=== PATIENT | female | born 1945 | race Caucasian/White ===

== ENCOUNTER 2018-08-13 08:06 | Day surgery (SDC) | payer MEDICARE, SELFPAY ==
--- NOTE | 2018-08-13 | AXNB_PTH ---
PATIENT: LEANNA CONNOLLY LOC: [facility] – [place] U#:[id number] AGE/SX: 73/F ROOM: RE08/13/[address]: Dr. Rajani St MD : 1945 BED: DIS: 08/13/2018 SPEC #: [id number] RECD: 08/13/18 10:59 STATUS: BERNA REAmy #: [id number] PANTERA: 08/13/18 00:[address]: Rajani St DEPT: SURGICAL PATHOLOGY RECD BY: Kimberlee Rosenberg ENTERED: 08/13/18 11:46 SP TYPE: AX NODE BX OTHR DR: Dr. Dallas Fletcher DO Tissues: A - Axillary lymph node, NOS B - Left breast, NOS Procedures: Frozen Section (charge) Frozen Section Add'l ([facility]) Surgery Specimen Level V Frozen (no charge) HEADER OPERATION: Left breast lumpectomy, sentinel node, NL PRE-OP DIAGNOSIS: Newly diagnosed left breast cancer TISSUE SUBMITTED: A - Left breast axillary tissue for sentinel nodes sent for frozen at 1053, B - Left breast biopsy, one long suture valentin lateral border, two long sutures haider medial border, one short suture valentin superior border FROZEN SECTION DIAGNOSIS A. Left sentinel nodes, biopsy: Three out of three lymph nodes are negative for metastatic carcinoma. B. Left breast lumpectomy: Invasive ductal carcinoma. SJ:sulema 08/13/18 MICROSCOPIC DIAGNOSIS A. Left axillary sentinel lymph nodes, biopsy: Three out of three lymph nodes negative for metastatic carcinoma. B. Left breast, lumpectomy: Invasive ductal carcinoma. See cancer checklist below. AM:sulema 08/15/18 COMMENT INVASIVE BREAST CANCER SUMMARY: Specimen: Partial breast Procedure: Excision with wire guidance Specimen integrity: Single intact specimen. Specimen size: 7 x 4 x 2.5 cm Specimen laterality: Left breast Invasive tumor: Tumor size: 5 x 5 x 5 mm Tumor focality: Single focus of invasive carcinoma Macroscopic and Microscopic extent of tumor: Skin: Not present Nipple: Not present Skeletal muscle: No present Histologic type of invasive carcinoma: Invasive ductal carcinoma Histologic Grade (Orly grade): Glandular/tubular differentiation score: 2 Nuclear pleomorphism score: 2 Mitotic count score: 1 Overall grade: Grade 1 (4 of 5) Margins: Uninvolved by invasive carcinoma. Distance from closest (inferior margin) - 5 mm Lymph-Vascular invasion: Not identified Dermal lymph-vascular invasion: Not identified Lobular carcinoma in situ (LCIS): Not identified Lymph nodes: Number of sentinel lymph nodes examined - 3 Total number of lymph nodes examined (sentinel and nonsentinel) - 3 No evidence of macrometastases, micrometastases or isolated tumor cells. See specimen A. Microcalcifications: Present in both carcinoma and non-neoplastic tissue, focal. Treatment effect: Unknown Additional pathologic findings: Usual intraductal hyperplasia with focal atypical intraductal hyperplasia. Fibrocystic change. Changes of previous biopsy. Ancillary studies: Block B6 ([id number]) ER: >95%, strong AR: >95%, strong Her2 ritika:0-1+ (IHC):Negative PATHOLOGIC STAGE: pT1a N0(sn) Mx The above summary is in compliance with [employer] (CAP) Cancer Protocols Checklist and [place] Joint Committee on Cancer (AJCC), Staging Manual, 8th Ed. Case has been reviewed in consultation with Dr. Ospina who concurs with the above diagnosis. IDC:SJ MICROSCOPIC DESCRIPTION Slides are reviewed. GROSS DESCRIPTION A - Received fresh for frozen section diagnosis labeled with the patient's name is a specimen designated left sentinel node. The specimen consists of three fragments of mancia-yellow fibroadipose tissue that in aggregate measure 3 x 3 x 1 cm. Three nodules consistent with lymph nodes are identified. The entire specimen is submitted in four cassettes as follows: 1 - frozen section, smallest lymph node, 2 - frozen section, one bisected lymph node, 3 - frozen section, one bisected lymph node, 4 - rest of the specimen. Both sections will be submitted after additional fixation. B - Received fresh for intraoperative consultation and followed later by frozen section diagnosis labeled with the patient's name is a specimen designated left breast lumpectomy. The specimen consists of a fragment of mancia-yellow fibroadipose tissue with needle localization measuring 7 x 4 x 2.5 cm. The specimen is oriented as follows: one long suture - lateral border, two long sutures - medial border, one short suture - superior border. The specimen is inked as follows: anterior - yellow, posterior - black, superior - blue, inferior - green, medial - red and lateral - orange. Serial sections reveal a mancia, indurated nodule measuring 0.5 cm in greatest dimension and it is close to inferior margin. This information is conveyed to the surgeon intraoperatively. The entire nodule with surrounding tissue is submitted for frozen section diagnosis. Sections of the rest of the specimen reveal mancia-yellow adipose cut surfaces mixed with scant fibrous areas. It Infrastructure Consultant sections are submitted in 12 cassettes as follows: 1-3 - frozen section, suspicious nodule, 4 & 5 - perpendicular margins, 8-12 - enrollment representative sections adjacent to and away from the nodule. Both sections will be submitted after additional fixation. / FAVIO:sulema 08/13/18 TC:0 CPT: 90029 x2, 27386 x2, 39326 x4
--- NOTE | 2018-08-13 | IMM_PTH ---
PATIENT: LEANNA CONNOLLY [place] [facility] [place][id number] AGE/SX: 73/F ROOM: RE08/13/[address]: Dr. Rajani St MD : 1945 BED: DIS: 08/13/2018 SPEC #: [id number] RECD: 08/18/18 10:09 STATUS: BERNA REQ #: [id number] PANTERA: 08/13/18 00:[address]: Rajani St DEPT: IMMUNOHISTOCHEMISTRY RECD BY: Kimberlee Rosenberg ENTERED: 08/18/18 10:12 SP TYPE: IMMUNO OTHR DR: Dr. Dallas Fletcher DO Tissues: A - Axillary lymph node, NOS B - Left breast, NOS Procedures: CALPONIN-1 (add) CK5-6 (add) CK7 (add) CK8 (add) E-CAD (add) HER2 LETTY (add) KI-67 (add) P53 (add) CT (add) Pankeratin (add) P40 (add) ER (initial) CK7 (initial) PHYSICIAN & [place] [id number] SPECIMEN INFORMATION: Tissue Source: A - Left breast axillary nodes, B - Left breast lumpectomy Clinical Info: Left breast cancer Specimen Number: [id number] A1, A2, A3, B6 CPT code: 27514 x2, 62567 x11, 16526 x3 METHODOLOGY: Deparaffinized sections of prefer/formalin-fixed tissue or PAP/DQ stained slides are incubated with monoclonal/polyclonal antibodies/oligonucleotide probes. Localization is made via biotin free immunoperoxidase method. Appropriate controls are performed and reacted as expected. Results on target cell population are indicated in the following table: RESULTS: ANTIBODY / CLONE RESULT Block A1 CK7 (OV-TL12/30) negative AE1-3 (AE1/AE3/PCK26) negative Block A2 CK7 (OV-TL12/30) negative AE1-3 (AE1/AE3/PCK26) negative Block A3 CK7 (OV-TL12/30) negative AE1-3 (AE1/AE3/PCK26) negative Block B6 P53 (DO-7) negative Ki-67 (30-9) positive, low CK8 (71cepjM08) positive CK5-6 (D5 & 1684) negative Calponin-1 (RF263S) negative P40 (BC28) negative E-Cad (ECH-6) positive MORPHOMETRIC ANALYSIS ER (clone 6F11) >95% CT (clone 16/1E2) >95% Her-2Neu (clone CB11) 0-1+ The prognostic test for HER2 is performed on formalin-fixed paraffin embedded tissue. A 3+ (positive) staining pattern is defined as intense, homogeneous, complete, circumferential membranous staining in >10% of contiguous tumor cells. A similar weak (2+) staining pattern is interpreted as equivocal. BENITA follow-up testing is recommended for all equivocal cases. Positivity/negativity for ER/CT is reported if > or < 1% of the tumor cells are immuno- reactive, respectively. The ASCO/CAP criteria is used for scoring. Reference: Journal of Clinical Oncology, 2013; 31:1003-0035 & 2010; 16:6520-2727. Duration of fixation: __ Hrs; Sample Adequate: Yes. These assays have not been validated on decalcified tissues. Results should be interpreted with caution given the likelihood of false negativity on decalcified specimens. These tests were developed and their performance characteristics determined by [facility]. They may not have been cleared or approved by the U.S. Food and Drug Administration. The FDA has determined that such clearance or approval is not necessary. INTERPRETATION: A. Left sentinel lymph nodes, biopsy: Three out of three lymph nodes negative for carcinoma. B. Left breast lumpectomy: Invasive ductal carcinoma, grade 1/3. Positive for estrogen receptors (favorable prognostic indicator). Positive for progesterone receptors (favorable prognostic indicator). Negative for overexpression of [id number]. AM:sulema 08/18/18
--- NOTE | 2018-08-13 06:55 | BI_ITS ---
SURGICAL BREAST SPECIMEN RADIOGRAPH CLINICAL: Document presence of wire in biopsy specimen. FINDINGS: Specimen shows presence of spiculated lesion in the center of the specimen with a wire detected. Pathology is pending and an addendum to the biopsy report will be performed after the final pathologic diagnosis is rendered. Electronically Signed: Sedrick Holm, at 13:44 EST Tel , Service support , BI/Breast Biopsy Specimen
--- NOTE | 2018-08-13 07:43 | HP.PCM_ITS ---
History and Physical Date of Admission: 08/13/18 Estella Aguilar 1945 ? ? REFERRING PHYSICIAN: Kelsea Pritchett (Andrea* ? CHIEF COMPLAINT: Newly diagnosed left breast cancer ? HPI: The patient is a 73 year old female presents with abnormal ultrasound of left breast. Underwent left US guided breast biopsy on 07/31/18. No breast cancer known in family. The ultrasound lesion is located at 2:00, 1 cm from the nipple, near the scar tissue area of a previous left breast biopsy. Denies palpable breast masses. Denies nipple discharge. Denies chronic breast pain. No breast or ovarian cancer known in family. ? Pathology - Left breast, needle core biopsy (A) - Invasive ductal carcinoma, nuclear grade 2. ER/NJ > 95%, Her2 negative ?? ? PAST MEDICAL HISTORY ? Carotid atherosclerosis, bilateral 11/2017 ? 20-39% per [place] carotids b/l ? Dyslipidemia ? ? Dysphagia ? ? Esophageal reflux ? ? Esophagitis, unspecified ? ? GERD (gastroesophageal reflux disease) ? ? HTN (hypertension) ? ? IFG (impaired fasting glucose) ? ? Left leg pain 05/2016 ? chronic, slightly abnormal left PVR/CHLOE ? Migraines ? ? Osteopenia ? ? PHN (postherpetic neuralgia) ? ? Unspecified gastritis and gastroduodenitis ? ? ? PAST SURGICAL HISTORY ? APPENDECTOMY ? ? ? BREAST BIOPSY - left ? ? ? COLONOSCOP W/ OR W/O BRSH SPEC ? 01/06/15 ? EGD - BALLOON DILATION <30MM ? 06/24/07 ? EGD W/O BRS SPECIMEN W/BX ? 09/23/09 ? EGD W/O OR W/BRUSH/WASH ? 03/06/07 ? EGD W/O OR W/BRUSH/WASH ? 11/27/2011 ? EGD W/O OR W/BRUSH/WASH ? 09/04/13 ? ESOPHAGEAL MANOMETRY ? 06/24/07 Dr. Almanza [facility] ? EXCISION BAINS NEUROMA EACH Bilateral ? ? HEART CATHETERIZATION ? ? ? PAST SURGICAL HISTORY OF ? 05/12/2018 uterine prolapse surgery ? TUBAL LIGATION ? MEDICATIONS valACYclovir (VALTREX) 500 mg tablet Take 2 tablets by mouth twice daily. As needed for cold sore outbreaks aspirin 81 mg chewable tablet Take 81 mg by mouth once daily. TURMERIC ROOT EXTRACT ORAL Take 1 tablet by mouth once daily. metoprolol succinate ER (TOPROL XL) 50 mg 24 hr tablet Take 1 tablet by mouth once daily. cycloSPORINE (RESTASIS MULTIDOSE) 0.05 % drop Use in eyes. MAGNESIUM CARBONATE ORAL Take 400 mg by mouth once daily. Riboflavin (VITAMIN B-2) 25 mg tab Take 100 mg by mouth once daily. 3 pills (300) nitroglycerin sublingual 0.4 mg SL tablet Dissolve 1 tablet under the tongue as needed. FOR CHEST PAIN. IF NO RELIEF CALL 911 docusate sodium (COLACE) 100 mg capsule Take 1 capsule by mouth twice daily. (Patient not taking: Reported on 07/24/2018 polyethylene glycol 3350 (MIRALAX) 17 gram/dose powder Take 17 g by mouth once daily. (Patient not taking: Reported on 07/24/2018 ibuprofen (MOTRIN) 600 mg tablet Take 1 tablet by mouth every 6 hours as needed for Pain. Take with food. (Patient not taking: Reported on 07/24/2018 calcium carbonate 600 mg-cholecalciferol 200 units (CALCIUM 600 WITH VITAMIN D3) 600 mg(1,500mg) -200 unit tab Take 2 tablets by mouth once daily. BIOTIN ORAL Take 1,000 mcg by mouth as directed. Every other day. cyanocobalamin (VITAMIN B-12) 1,000 mcg tab Take 1,000 mcg by mouth once daily. L.ACID/L.CASEI/B.BIF/B.PADMA/FOS (PROBIOTIC BLEND ORAL) Take 1 tablet by mouth once daily. ? ? ALLERGIES: Penicillins; Sulfites ? PERSONAL HISTORY: Social History Marital status: Spouse name: Years of education: Number of children: 2 Occupational History Occupation Employer Comment [employer] Social History Main Topics Smoking status: Former Smoker Packs/day: 0.00 Years: 0.00 Smokeless tobacco: Never Used Alcohol use: Yes 3.0 oz/week Glasses of Wine (5oz): 2 per week Comment: rarely Drug use: No ? FAMILY HISTORY ? Cancer Mother ?? Uterine ? COPD Mother ? ? other (dementia) Father ? ? Stroke Paternal Grandmother ? ? Heart Paternal Grandfather ? ? None Other ? ? Stroke Brother ? ? Heart Brother ? ? Heart Brother ? ? ? REVIEW OF SYSTEMS: General: The patient denies fatigue, denies weight loss, denies weight gain, denies feeling hot, and denies feelings of cold. Eyes: The patient denies glaucoma, notes eye injury/surgery, does not wear glasses or contacts. Ear/Nose/Throat: The patient notes allergies, denies hayfever, denies ear infections, and notes bloody noses. Cardiovascular: The patient denies chest pain, denies heart disease, notes high blood pressure,denies cardiac stent, denies prior heart attack, denies irregular heart beat, denies high cholesterol, denies poor circulation, denies heart failure, other cardiac issues, denies claudication, denies cold feet, denies peripheral arterial stent. Respiratory: The patient denies tuberculosis, denies pneumonia, denies frequent cough, denies pulmonary embolism, denies shortness of breath, and denies coughing up blood. Gastrointestinal: The patient denies difficulty swallowing, notes acid reflux, denies ulcers, denies vomiting, denies jaundice/hepatitis, denies gallbladder problems, denies black or tarry stools, denies hemorrhoids, denies bleeding from rectum, denies diverticulitis, denies constipation, denies diarrhea, denies loss of stool control, and denies hernias. Kidney/Bladder: The patient denies kidney stones, notes urine infections, and denies bloody urine. Skin: The patient denies a history of skin cancer, denies bleeding/changing moles, and denies a history of skin rash. Neurologic: The patient denies a history of epilepsy/convulsions, notes headaches, denies head/spinal injuries, and denies stroke/TIA. Psychiatric: The patient denies psychiatric medications, denies depression, and denies voices, denies substance abuse. Endocrine: The patient denies thyroid disorders, denies diabetes, and denies hormonal problems. Hematologic: The patient denies a history of bruising, denies bleeding, and denies anemia, denies blood clots. Infections: The patient notes a history of measles and mumps, denies rheumatic fever, and denies sexually transmitted diseases. Musculoskeletal: The patient denies back pain/injury, denies back problems, denies sciatica, denies knee/foot trouble, denies arthritis, or denies gout. Obstetrical: menarche onset at age [age], , first age 18, breast feeding none, BCP initially at age 19 for about 6 months, menopause age 53, HRT for < 6 m ? PHYSICAL EXAMINATION: General: The patient is 73 year old female, well nourished, well hydrated in no acute distress. The patient is oriented to time, place, and person. VITALS: Blood pressure 164/70, pulse 66, weight 55.2 kg (121 lb 12.8 oz). Body mass index is 22.28 kg/m?. Head ? Normocephalic. EOM intact with sclera clear and no icterus noted. Mouth with mucus membranes moist. Neck - supple with no jugular venous distention noted. Trachea is midline. No carotid bruits noted. No thyroid enlargement or thyroid nodules detected. No masses noted. Chest/breast ? no asymmetry of breasts noted, no suspicious skin lesions noted - healed incisional scar slightly transverse extending from 2:00 left breast, no nipple discharge and both nipples everted, no breast masses noted, nodular, dense breast tissue palpated bilaterally, no suspicious lesions palpated Lungs ? clear to auscultation. Normal breath sounds. No rales/rhonchi/wheezing noted. No labored breathing noted, such as retractions. . Heart ? normal S1 and S2 auscultated. No rubs/clicks/murmurs noted. Regular rate. Abdomen ? soft and benign. Normal bowel soundss. No abdominal bruits noted. Extremities ? no calf tenderness noted. No pitting edema noted. Skin ? normal skin integrity. Lymph ? no cervical adenopathy detected, no supraclavicular adenopathy detected, no axillary adenopathy detected Neurological ? gait normal, no focal deficits noted Psych ? calm and appropriate RADIOLOGIC STUDIES: As Noted ? ? IMPRESSION: newly diagnosed left breast cancer ? PLAN: I have discussed the above with the patient and her son who is present with her. I have given the patient options for initial surgical treatment. Options are the following: lumpectomy followed by radiation therapy vs. mastectomy vs. mastectomy followed by immediate reconstruction. I have described the procedures to the patient. I have described the advantages and disadvantages of the options, but I have told the patient that among the options, the survival rate for breast cancer is the same. I have told the patient that with all of the surgeries that a sentinel lymph node biopsy is required. I have described the procedure of sentinel lymph node biopsy to the patient. I have told the patient the risks of surgery, including but not limited to: infection, bleeding, scar tissue, seroma and persistent seroma, lymph leak, injury to any blood vessels, injury to any nerves (particularly the long thoracic, the thoracodorsal, and the second intercostal brachial and the resultant sequelae), lymphedema, cosmetic deformity, dysthesias, wound infections, further surgery (especially if margins are not clear), complications of anesthesia, etc. ? the patient understands. The radiologist is not be available for radioisotope injection for lymph node localization until after the holidays and I have explained this to the patient. The lymph nodes will be localized with blue dye localization. I have explained both types of localization would be ideal, but then surgery cannot be scheduled until after the new year. Patient understands the limitations of only blue dye localization and wants to proceed with surgery without radioisotope injection localization - because she wants to have surgery as soon as possible. I have answered all the patient?s questions at this point to her satisfaction and she has no further questions She is to undergo right breast lumpectomy via wire localization and right sentinel axillary lymph node biopsy via blue dye localization at [facility].
[2018-08-13 08:23] VITALS: BP 179/80; PULSE 77; RESP 14; TEMP 36.6; O2SAT 99; BMI 21.4
--- NOTE | 2018-08-13 09:33 | PCM.IMDPSTOP ---
Immediate Post-Op Note Date of Procedure: 08/13/18 Primary Surgeon/Physician: Rajani St MD online media director: Eleanor Terrazas Pre-Operative Diagnosis: left breast cancer Post-Operative Diagnosis: same Surgery/Procedure Performed:: left breast lumpectomy via wire localization, left axillary sentinel lymph node biopsy via blue dye technique Description of Surgical Findings:: three lymph nodes found negative, specimen mammogram doesn't show clip but xray obtained in the OR did not show any clips in the area Estimated Blood Loss: 30 ml Specimen's removed: left breast lumpectomy tissue, left axillary sentinel lymph becky tissue Type of Anesthesia:: General ASA Class: ASA2 Mod Systematic Disease - Admit VTE Documentation VTE Present on Admission: Yes VTE Mechan Device Prophylaxis: SCD's
[2018-08-13] MEDS: Isosulfan Blue 1% 5 ML Vial (10:20)
--- NOTE | 2018-08-13 12:19 | OP.PCM_ITS ---
Report of Operation Date of Procedure: 08/13/18 Pre-Operative Diagnosis: left breast cancer Post-Operative Diagnosis: same Surgery/Procedure Performed:: left breast lumpectomy via wire localization, left axillary sentinel lymph node biopsy via blue dye technique Description of Surgical Findings:: three lymph nodes found negative, specimen mammogram doesn't show clip but xray obtained in the OR did not show any clips in the area carrot grader inspector: Eleanor Terrazas Type of Anesthesia:: General Anesthesiologist: Nicolas Salazar Specimen's removed: left breast lumpectomy tissue, left axillary sentinel lymph becky tissue Drains: none Estimated Blood Loss (mL): 30 ml Fluids Replaced: 1000 ml RL Description of Procedure: After informed consent was given, the patient was brought into the Breast Stereotactic Radiology suite and placed in the prone position on the [place] stereotactic table. The patient?s left breast was placed in the opening at the head of the table. A analytical manager compression mammogram was then obtained in the lateral view. The marker clip that was previously placed was identified. Stereo pictures of the lesion were then taken for XYZ coordinates. The Kopans needle was then positioned where it would be entering into the patient?s breast. The skin at this site was then cleansed with a surgical skin preparation. The skin and subcutaneous tissues at this site were then infiltrated with 1% xylocaine. The Kopans needle was then positioned into the patient?s breast at the proper coordinates of depth. A analytical manager film was obtained which revealed the wire in proper position. The patient was then placed in the supine position and the wire was taped into place. A unilateral mammogram in the CC and MLO view were then taken for use in the OR. The patient tolerated this portion of the procedure well and was brought to the AC awaiting surgery in the OR. The patient was then brought to the Operating Room and placed on the operating table in the supine position. A wire had already been placed in the stereotactic biopsy room in the radiology department as described above. The left breast periareolar area was infiltrated with lymphozurin dye - 50:50 diluted - total of 3.5 cc used. Gentle massage was then done for a few minutes. The patient's left chest and neck area was then prepped with a sterile surgical skin preparation and appropriate sterile surgical drapes were placed. A skin incision was made in the inferior portion of the hair bearing area of the left axilla. It was carried through to the subcutaneous tissues using electrocautery. Any hemorrhage was controlled with electrocautery. A Weitlaner retractor was used for increased operative exposure. The blue lymphatic vessels were then followed by blunt dissection until blue colored lymph nodes were identified. These were from the surrounding tissue by blunt dissection and the vascular pedicles ligated with ligaclips. The lymph nodes were then forwarded to pathology for frozen section. Pathology revealed that three lymph nodes were negative for metastatic disease. Careful hemostasis was achieved with electrocautery. Truman was applied to the axillary cavity. The deep fascia was approximated with interrupted 2-0 vicryl suture. The skin edges were reapproximated with 3-0 vicryl suture in a horizontal mattress fashion and then further closed with running 4-0 monocryl in a subcuticular fashion. Dermibond then placed to reinforce the skin closure and proper sterile dressings were applied The left breast lumpectomy was then done. There was a previous incisional scar. The skin and subcutaneous tissues were infiltrated with local anesthetic. An incision was made to take an ellipse of skin tissue with the previous scar incorporated with a 15 blade scalpel incorporating the previous biopsy site. It was sharply carried down to the subcutaneous tissues. Hemostasis was controlled with electrocautery. The wire was then followed down and the surrounding breast tissue was then from the breast tissue using electrocautery. Most of this tissue (that contained the biopsy cavity) was centrally located. A good margin of breast tissue surrounding the biopsy cavity was incorporated in the quadrantectomy. Once the breast tissue with the biopsy cavity was entirely freed then it was marked with suture at its borders. Hemostasis was with electrocautery. The specimen was handed off to radiology. A specimen mammogram revealed that a mass was in the specimen, however, no marker clip was identified. The specimen was sent to pathology for analysis. The margins were adequate. Because no marker clip was identified in the specimen, I asked the pathologist for a frozen section of the the breast mass and also obtained a modified xray to identify for the marker clip. The pathologist did note a cancer in the specimen. The xray did not identify a marker clip. Hemostasis of the lumpectomy cavity was carefully achieved with electrocautery. The deep tissue were approximated with heavy vicryl suture. A horizontal mattress suture into the dermis was placed with 3-0 vicryl suture. The skin incisions were then closed with running subcuticular 4-0 monocryl suture. Dermibond was then placed to reinforce the skin closure and proper sterile dressings were applied. - Complications none noted - Admit VTE Documentation VTE Present on Admission: Yes VTE Mechan Device Prophylaxis: SCD's
[2018-08-13] MEDS: Bupiv/Epi 0.5% Mpf 30 ML Vial (12:26)
--- NOTE | 2018-08-13 12:30 | RAD_ITS ---
STUDY: X-RAY CHEST REASON FOR EXAM: Female, 73 years old. TECHNIQUE: COMPARISON: None. FINDINGS: There is opaque. U shaped foreign body inferior lateral aspect of the breast probably overlying the skin could be the concerned foreign which could also represent a lead are EKG monitoring. No evidence of metallic or opaque clip identified within the image provided. Electronically Signed: Sedrick Holm, at 14:05 EST Tel , Service support , RAD/Chest 1 View (Portable)
[2018-08-13 12:42] VITALS: BP 118/71; BP 179/80; PULSE 99; RESP 14; TEMP 36.5; O2SAT 95
[2018-08-13 12:45] VITALS: BP 125/67; BP 179/80; PULSE 102; RESP 16; O2SAT 92
[2018-08-13 13:00] VITALS: BP 145/76; BP 179/80; PULSE 98; RESP 16; O2SAT 96
--- NOTE | 2018-08-13 13:07 | PCM.DC.BS ---
Discharge Diet: No Restrictions Discharge Activity: Return to Normal Activity, May not drive while taking narcotic pain medications. Lifting Restrictions: no lifting with left arm greater than 5 pounds until further notice Call your doctor if your incision/area has: Continuous Slow Oozing, Foul Smelling Discharge Call your doctor if you observe: Fever of 101 or Higher Additional Dressing/Incision Instructions:: Leave dressings in place. May get wet in shower. Do not soak - no tub baths/swimming Additional Instructions: Wear bra during day for support May apply ice to the area for comfort Avoid any trauma to the left breast Allergies/Adverse Reactions: Allergies Penicillins Allergy (Verified 08/13/18 08:20) Swelling shellfish derived Allergy (Verified 08/13/18 08:20) Unknown Sulfa (Sulfonamide Antibiotics) Allergy (Verified 08/13/18 08:20) Unknown Medications to take at Discharge Metoprolol(XL)Succ [Toprol Xl (Beta Gin)] 50 mg PO DAILY 07/19/13 Magnesium Oxide [Magnesium] 400 mg PO DAILY 06/08/16 Riboflavin (Vitamin B2) [Vitamin B2] 300 mg PO DAILY 06/08/16 Aspirin [Aspirin, Baby] 81 mg PO DAILY@0800 08/08/18 Calcium Carbonate/Vitamin D3 [Calcium 500 mg-Vit D3 600 Unit] 1 each PO TID 08/08/18 Turmeric Root Extract [Turmeric] 500 mg PO DAILY 08/08/18 Hydrocodone Bitart/Apap 5-325 [Lafferty 5MG-325MG] 1 tab PO Q8H PRN PRN 5 Days #10 tab 08/13/18 The following prescriptions were given: Hydrocodone Bitart/Apap 5-325 [Lafferty 5MG-325MG] 1 tab PO Q8H PRN PRN 5 Days #10 tab PRN Reason: Pain Primary Care Physician: Dallas Fletcher DO [Primary Care Provider] - Please Follow Up With: Rajani St MD - call When: to be seen in a week, please call for date and time, thank you
[2018-08-13 13:13] VITALS: BP 150/79; BP 179/80; PULSE 102; RESP 16; TEMP 36.7; O2SAT 93
[2018-08-13 14:06] VITALS: BP 155/78; BP 179/80; PULSE 87; RESP 16; TEMP 36.6; O2SAT 96
== END 2018-08-13 14:32 | disposition home or self-care (01) ==
LOC: SDC 08:06 → AC 08:10
PROVIDERS: Family Provider Student in an Organized Health Care Education/Training Program; PCP Student in an Organized Health Care Education/Training Program; Referring Provider Surgery; Visit Provider Surgery
PROC: (CPT 19301; principal; 2018-08-13 09:15)
DX: C50.912 Malignant neoplasm of unspecified site of left female breast (principal); Z87.891 Personal history of nicotine dependence; E78.5 Hyperlipidemia, unspecified; K21.9 Gastro-esophageal reflux disease without esophagitis; I10 Essential (primary) hypertension
CPT/HCPCS: 01610; 19301; 38525; 38900; 19281; 71045; 76098; 88305; 88307; 88331; 88332; 88341; 88342; J7120; J2405; J3490; Q9968

== ENCOUNTER 2020-04-06 08:23 | Emergency (ER) | payer MEDICARE, SELFPAY ==
[2020-04-06 08:24] VITALS: BP 170/89; PULSE 74; RESP 17; TEMP 36.6; O2SAT 100; BMI 21.7
--- NOTE | 2020-04-06 08:55 | EKG12_ITS ---
Test Reason : ABD. PAIN Blood Pressure : / mmHG Vent. Rate : 067 BPM Atrial Rate : 067 BPM P-R Int : 148 ms QRS Dur : 086 ms QT Int : 400 ms P-R-T Axes : 060 008 056 degrees QTc Int : 422 ms Normal sinus rhythm with sinus arrhythmia Septal infarct , age undetermined Abnormal ECG Confirmed by PITO SMITH ([id number]), online editor RAMA BAEZA ([id number]) on 04/11/2020 9:38:18 AM Referred By: JAMIL Confirmed By:PITO SMITH
--- NOTE | 2020-04-06 08:55 | RAD_ITS ---
STUDY: X-RAY CHEST REASON FOR EXAM: Female, 74 years old. Pain underneath breast bone. TECHNIQUE: Single AP portable view of the chest. COMPARISON: None. FINDINGS: The lungs are clear and expanded. There is no demonstrated pleural abnormality. Normal size heart. Normal mediastinum and lashawn. Normal visualized pulmonary arteries. Normal visualized aortic arch and descending thoracic aorta. There are diffuse degenerative changes of the visualized thoracic spine. Normal visualized ribs, clavicles, and shoulders. There is no demonstrated abnormality of the visualized soft tissue structures of the upper abdomen. RAD/Chest 1 View (Portable) IMPRESSION: Degenerative changes, as described above. No demonstrated acute cardiopulmonary process. Electronically Signed: Bharathi Guerra, at 9:42 EDT Tel , Service support ,
[2020-04-06] MEDS: 0.9% Normal Saline 1,000 ML 15 ML IV (09:05)
[2020-04-06 09:11] LABS: Absolute Lymphocyte Count 2.34 X10^3/uL (0.83-4.51); Absolute Neutrophil Count 3.1 X10^3/uL (2.0-7.7); Basophil# 0.04 X10^3/uL; Basophil% 0.6 % (0-1); Eosinophil# 0.18 X10^3/uL; Eosinophils% 2.9 % (0-5); Hematocrit 42.5 % (37-47); Hemoglobin 13.7 g/dL (12.0-15.0); Lymphocyte # 2.34 X10^3/ul (4.0); Lymphocyte % 37.8 % (19-41); Mean Corp Hgb Conc 32.2 g/dL (32-36); Mean Corpuscular Hgb 29.8 pg (27.0-32.0); Mean Corpuscular Volume 92.4 fL (81-99); Mean Platelet Vol. 9.5 fl (6.2-12.0); Monocyte# 0.45 X10^3/uL; Monocyte% 7.3 % (0-10); NRBC Flagged by Analyzer 0 % (0-5); Neutrophil # 3.14 X10^3/uL (2.7-7.7); Neutrophil % 50.8 % (47-70); Platelet Count 300 K/mm3 (150-450); RBC Distribution Width SD 47.2 fl (35.1-43.9); White Blood Count 6.2 K/mm3 (4.4-11.0)
[2020-04-06 09:25] LABS: AST(SGOT) 20 U/L (15-37); Alanine Aminotransfer ALT/SGPT 27 U/L (13-56); Alkaline Phosphatase 51 U/L (45-117); Anion Gap 6 (5-15); BUN 14 mg/dL (7-18); Chloride 106 mmol/L (98-107); Creatinine, Serum 0.78 mg/dL (0.55-1.02); EST Glomerular Filtration Rate 77 mL/min (>60); Est Glom Filt Rate - Afr Amer 93 mL/min (>60); Estimated Creatinine Clearance 37.85 ml/min; Glucose 115 mg/dL (74-106); Potassium 3.8 mmol/L (3.5-5.1); Sodium Level 138 mmol/L (136-145)
[2020-04-06 09:51] LABS: D-Dimer Quantitative (DVT/PE) 0.65 FEU/ug/m (0.27-0.49)
--- NOTE | 2020-04-06 09:51 | ED.RN ---
NOTIFIED OF D-DIMER OF 0.65. AWAITING ORDERS.
--- NOTE | 2020-04-06 10:19 | CT_ITS ---
STUDY: CTA CHEST REASON FOR EXAM: Female, 74 years old. CP, RUQ PAIN X 3 DAYS, ELEV D-DIMER, HX BREAST CANCER RADIATION DOSAGE (If Supplied By Facility): CTDIvol = ( 5.35 ) mGy, DLP = ( 150.65 ) mGycm TECHNIQUE: The examination was performed with the intravenous administration of IV 75mL Isovue-370. Post-processing of the angiographic images was performed, with multiplanar reformation and 3D reconstruction. Individualized dose optimization techniques were used for this CT. COMPARISON: None. FINDINGS: Normal enhancement of the main pulmonary artery and right and left pulmonary arteries. Normal enhancement of the bilateral peripheral pulmonary arteries. There is no demonstrated pulmonary embolism. Normal thoracic aorta and visualized great vessels. There is no demonstrated aortic dissection. Normal heart and pericardium. Normal mediastinum. Normal hilar regions. Normal visualized trachea and bronchi. The lungs are well expanded. Normal pulmonary parenchyma. Normal pleura. Normal chest wall structures. Normal osseous structures. Normal visualized upper abdomen. CT/CTA Chest W/WO Contrast IMPRESSION: Normal CTA chest examination, without a demonstrated pulmonary embolism or arterial dissection. Electronically Signed: Bharathi Guerra, at 11:05 EDT Tel , Service support ,
[2020-04-06 10:41] LABS: Bacteria 0 SEEN /hpf (None Seen); Mucous, Urine 0 SEEN /hpf (<or=2+); Red Blood Cells-Urine 0 SEEN /hpf (0-5)
[2020-04-06 10:45] VITALS: BP 153/62; PULSE 61; RESP 18; O2SAT 99
[2020-04-06 10:52] LABS: Color, Urine Yellow (Yellow); Glucose, Dipstick Normal (Normal); Ketone-Dipstick Negative (Negative); Leukocyte Esterase-Dipstick 25 /ul (Negative); Nitrite-Dipstick Negative (Negative); Occult Blood-Urine Negative /ul (Negative); Protein-Dipstick Negative (Negative); Specific Gravity, Urine 1.005 (1.002-1.030); Urine Bilirubin Dipstick Negative (Negative); Urine Clarity Sl. Cloudy (Clear); Urine Urobilinogen Normal (Normal)
--- NOTE | 2020-04-06 11:08 | ED.VISSUMM ---
- ER Visit Summary Date of Service: 04/06/20 Chief Complaint: [Right-sided chest pain] History of Present Illness: The patient is a 74 F [presents to the emergency department with complaint of pain over her right side. Initially was thought that her pain may be in the abdomen but she states that she thinks it is more chest and ribs. Pain is not pleuritic. She states that the pain woke her up around 2 AM today. She denies any nausea or vomiting. The pain was initially intermittent now is become more constant. Patient states that she does get shingles frequently and typically does not get much of a rash just gets the pain. Denies recent travel or surgery. She does have history of hypertension and high cholesterol. She denies recent illness. She is not had a fever or cough.] Physical Examination: [HEENT-PERRLA, EOMI. Cranial nerves II through XII grossly intact. TMs clear. Mucous membranes moist. No adenopathy. Cardiovascular-regular rate and rhythm without murmur or ectopy Lungs-clear to auscultation, chest wall stable without crepitus or subcu emphysema. No rash noted on the chest wall. Patient has some mild discomfort over the right anterior ribs into the mid axillary line. Abdomen-normoactive bowel sounds, soft, nontender, no rebound or rigidity, no peritoneal signs. Extremities-intact ?4, normal range of motion, normal pulses, atraumatic] Test Results: [EKG obtained on arrival showed a sinus rhythm with a ventricular rate of 67 bpm with old septal infarct. CBC with it was normal. Chemistries unremarkable. LFTs were normal. Troponin less than 0.015. D-dimer was elevated 0.65. Chest x-ray showed degenerative changes. CTA of the chest was negative for PE or dissection.] Emergency Department Course and Treatment: [Patient had an IV line established on arrival and was placed on a phototypesetting equipment monitor. She did not want anything for pain.] Treatment Plan: [Patient will start taking her Valtrex which she has at home. She does not want a thing for pain for home. Etiology of her pain is unclear although I suspect it could be related to a shingles outbreak.] Disposition: [Discharged home in stable condition] Impression: [Right-sided chest wall pain-etiology uncertain] This note was generated with [employer] software. It may contain incorrect words, spelling, and punctuation that were not noted in review of the chart prior to signing ED Disposition - Plan for ED Patient: Referrals: Dallas Fletcher DO [Primary Care Provider] -
[2020-04-06 11:09] LABS: Squamous Epithelial Cells - UA 0-5 SEEN /hpf (5-10); White Blood Cells 0-5 SEEN /hpf (0-5)
--- NOTE | 2020-04-06 11:13 | ED.DEP ---
ED Disposition - Plan for ED Patient: Instructions: ED CHEST PAIN Zach, GONZALES Shinkathy Referrals: Dallas Fletcher DO [Primary Care Provider] - 5-7 Days
[2020-04-06 11:36] VITALS: BP 181/87; PULSE 71; RESP 18; O2SAT 99
== END 2020-04-06 11:37 | disposition home or self-care (01) ==
LOC: ED 09:19
PROVIDERS: Emergency Provider Emergency Medicine; PCP Student in an Organized Health Care Education/Training Program
DX: R07.89 Other chest pain (principal); E78.00 Pure hypercholesterolemia, unspecified; I10 Essential (primary) hypertension; Z85.3 Personal history of malignant neoplasm of breast
CPT/HCPCS: 71045; 71275; 80053; 81001; 84484; 85025; 85379; 93005; 99285; J7030; Q9967

== ENCOUNTER → 2020-11-25 17:03 | Outpatient (CLI) | payer MEDICARE, SELFPAY ==
--- NOTE | 2020-11-25 17:30 | MRI_ITS ---
STUDY: MRI LEFT FOREFOOT WITHOUT CONTRAST REASON FOR EXAM: Female, 75 years old. Neuroma LEFT foot TECHNIQUE: Standardized fat and water weighted pulse sequences were obtained in all 3 orthogonal planes. COMPARISON: None. FINDINGS: There is degenerative arthrosis with a joint of effusion of the metatarsophalangeal joint of the hallux with capsular distension. Normal tibial and fibular sesamoids, with normal sesamoids-first metatarsal articulations. Normal interphalangeal joint of the hallux. Normal proximal and distal phalanges of the great toe. Normal medial and lateral heads of the flexor hallucis brevis tendons. Normal flexor and extensor hallucis longus tendons. Normal second through fifth metatarsophalangeal (MTP) joints. Normal interphalangeal joints of the second through fifth toes. Normal proximal, middle and distal phalanges of the second through fifth toes. Normal first through fourth intermetatarsal spaces. Normal flexor and extensor tendons of the second through fifth toes. Normal visualized metatarsi. Normal intrinsic muscles of the forefoot. There is no demonstrated soft tissue abnormality. MRI/Lower Ext/No Jt/w/o IMPRESSION: 1. 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 2. No MR evidence of Arias''s neuroma. Electronically Signed: Alejandro Marques MD at 17:46 EDT Tel , Service support ,
== END ==
PROVIDERS: PCP Student in an Organized Health Care Education/Training Program; Referring Provider Podiatrist; Visit Provider Podiatrist
DX: D36.13 Benign neoplasm of peripheral nerves and autonomic nervous system of lower limb, including hip (principal)
CPT/HCPCS: 73718

== ENCOUNTER → 2021-01-04 09:00 | Outpatient (CLI) | payer MEDICARE, SELFPAY ==
--- NOTE | 2021-01-04 13:07 | NEURO ---
NCS and/or EMG Patient Report Ordering Doctor: Gabriel Silvestre DATE OF SERVICE: 01/04/21 Estella Aguilar is a 75-year-old female presents for electrodiagnostic testing of the lower limbs. She reports a warm sensation in the lower legs, primarily on the left side. She states this is intermittent. She denies back pain. Electrodiagnostic findings: Peroneal motor nerve demonstrates normal distal latency, amplitude and conduction velocity bilaterally. Normal tibial motor response bilaterally. Normal tibial and peroneal F waves. H reflex normal bilaterally. Mildly prolonged sural latency is noted bilaterally. On needle EMG, all muscles tested in the lower limbs showed no evidence of denervation with normal motor unit action potentials. Electrodiagnostic assessment: This is an essentially normal study in the lower limbs. There is mild prolongation of the sural nerve bilaterally, though this is unlikely to be of any clinical consequence. There is no electrodiagnostic evidence for peripheral polyneuropathy or lumbosacral radiculopathy.
== END ==
PROVIDERS: PCP Student in an Organized Health Care Education/Training Program; Referring Provider Podiatrist; Visit Provider Podiatrist
DX: M54.10 Radiculopathy, site unspecified (principal); R20.2 Paresthesia of skin
CPT/HCPCS: 95886; 95912